=== PATIENT | male | born 1955 | race Caucasian/White ===

== ENCOUNTER 2017-02-09 11:32 | Day surgery (SDC) | payer OTHER ==
[~2017-02-09] VITALS: Ht 188 cm; Wt 76.7 kg
[2017-02-09] VITALS (18 sets, daily range): BP systolic 68–106; BP diastolic 44–71; PULSE 51–76; RESP 14–15; O2SAT 99–100
[~2017-02-09 11:32] MED LIST: 0.9% Sodium Chloride 1,000 ML IV SCH; ATEN50TA PO; CHOL10008 PO; FOLI1TAB18 PO; GLIP10TA10 PO; LISI-567 PO; METF500T4 PO; Sodium Chloride LOK Flush 10 mL Syringe IV PRN; fentaNYL-PF 50 mCg/mL 2 mL Inj IVPUSH PRN
[2017-02-09] MEDS ORDERED: fentaNYL-PF 50 mCg/mL 2 mL Inj ONE (12:01)
[2017-02-09] MEDS ORDERED: 0.9% Sodium Chloride 1,000 ML IV ONE (15:00)
--- NOTE | 2017-02-09 18:41 | ENDO ---
[address] [address] ENDOSCOPY PROCEDURE PATIENT: ANDREW ARNOLD : 1955 MR#: [id number] ADMIT: 02/09/2017 JOB ID: [id number] DATE OF SERVICE: 02/09/2017 PROCEDURE: Colonoscopy, biopsy. PREOPERATIVE DIAGNOSIS(ES): Diarrhea. POSTOPERATIVE DIAGNOSIS(ES): Small internal hemorrhoids. ANESTHESIA: Fentanyl 100 mcg, Versed 5 mg IV administered. COMPLICATIONS: None. BLOOD LOSS: Minimal. DESCRIPTION OF PROCEDURE: After risks and benefits explained to the patient, informed consent was obtained. After anesthesia administered, a colonoscope was inserted per rectum to the terminal ileum, mucosa carefully examined. Prep of the patient was excellent. After procedure was done, the scope withdrawn and procedure terminated. FINDINGS: Upon inspection of anus, no masses, hemorrhoids, ulcers, or fissures that were seen. Throughout the entire examination, there were no polyps, masses, or lesions. Biopsies taken of the terminal ileum and remainder of colon. Retroflexion small internal hemorrhoids. IMPRESSION: Small internal hemorrhoids. RECOMMENDATIONS: 1. High-fiber diet. 2. Await pathology results. 3. Follow up in GI clinic as needed.
--- NOTE | 2017-02-12 13:24 | PATH ---
SURGICAL PATHOLOGY Attending Physician:Vinnie Quiñonez MD CASE STATUS: Signed Out PATIENT NAME: ANDREW ARNOLD PID: [id number] : 1955 DATE COLLECTED:02/09/2017 19:52 SPECIMEN: 1: Ileum, Biopsy 2: Colon, Biopsy CLINICAL HISTORY: DIARRHEA 1). TERMINAL ILEUM BIOPSY 2). RANDOM COLON BIOPSY FINAL DIAGNOSIS: 1.TERMINAL ILEUM, BIOPSY: NORMAL TERMINAL ILEUM MUCOSA. No inflammation identified. Negative for dysplasia and malignancy.2.RANDOM COLON BIOPSY: COLONIC MUCOSA WITH NO DIAGNOSTIC ALTERATIONS. Negative for inflammation, dysplasia and malignancy. ICD10 R19.7 GROSS DESCRIPTION: The specimen is received in two formalin filled containers labeled with the patient's name. 1). The specimen this labeled "TI" and consists of 3 portions of tissue which aggregate to 0.3 x 0.3 x 0.2 CM. The specimen is entirely submitted in cassette 1A. 2). The specimen is labeled "random colon" and consists of 4 portions of tissue which aggregate to 0.3 x 0.3 x 0.2 CM. The specimen is entirely submitted in cassette 2A. 02/09/2017MT MICRO DESCRIPTION: See diagnosis. ICD-9 CODES: CPT CODES: 1: 39646 2: 03740 Electronically Signed Out Siobhan Bales MD [facility] [address], [place] [address] Technical component performed at [facility], [address] [place] [address] Ave[address], [place], [address]
== END 2017-02-09 23:59 | disposition home or self-care (01) ==
LOC: END 11:32
PROVIDERS: ATTEND Internal Medicine Gastroenterology
DX: K64.8 Other hemorrhoids (principal); K62.5 Hemorrhage of anus and rectum; R19.7 Diarrhea, unspecified; I10 Essential (primary) hypertension; R94.31 Abnormal electrocardiogram [ECG] [EKG]; Z79.84 Long term (current) use of oral hypoglycemic drugs